=== PATIENT | male | born 2005 | race Caucasian/White ===

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

== ENCOUNTER 2025-01-23 16:04 | Emergency (ER) | payer OTHER, SELFPAY ==
[2025-01-23 16:13] VITALS: BP 104/69; PULSE 73; RESP 20; TEMP 37.2; O2SAT 99
--- NOTE | 2025-01-23 16:13 | ED.GENADULT ---
HPI - General Adult General Chief complaint: Upper Respiratory Infection Stated complaint: stuffy nose for two weeks/cough Time Seen by Provider: 01/23/25 16:13 Source: patient, RN notes reviewed and old records reviewed Mode of arrival: ambulatory Limitations: no limitations History of Present Illness HPI narrative: 19-year-old male presents to the [facility] with complaints of a runny nose, postnasal drainage and a cough for 2 weeks. Patient reports that Claritin has been making it better. Denies any facial pressure. Denies fevers. Denies any other symptoms. Has a history of seasonal allergies Onset (ago): week(s) (2) Related Data Allergies Allergy/AdvReac Type Severity Reaction Status Date / Time No Known Allergies Allergy Verified 01/23/25 16:05 Review of Systems Review of Systems: All systems reviewed & are unremarkable except as noted in HPI and below Constitutional: Constitutional: Reports no additional constitutional complaints ENT: Reports as per HPI Cardiovascular: Cardiovascular: Reports no additional cardiovascular complaints, Denies chest pain and Denies dyspnea Respiratory: Respiratory: Reports as per HPI, Denies chest congestion, Reports cough and Denies dyspnea Musculoskeletal: Musculoskeletal: Reports no additional musculoskeletal complaints Integumentary/Breasts: Skin/Breast: Reports system reviewed and no additional complaints, except as docu PMFSH Past Medical History Medical History Carlee esophagitis Social History Social History Smoking status: Never smoker Alcohol intake: current Drinks per week: 1 Substance use: never Comments At the time of my signature, I reviewed and agree with the nursing past medical, surgical, social, and family history. There is no relevant family history pertinent to the patient complaint. Exam Const: General: cooperative, healthy appearing, comfortable, no acute distress, well developed, alert and well nourished Nutritional Appearance: well nourished Orientation/consciousness: patient oriented x3 Limitations: no limitations HENMT: Head: normal to inspection Ears: hearing grossly normal bilaterally, external ears normal, TM's normal bilaterally, EAC's normal, mastoids normal and no periauricular adenopathy Face/Nose/Sinus: Normal external nose present, Normal nares present, Normal nasal mucous membranes and turbinates present, No nasal discharge present, normal facial exam, sinuses nontender and face symmetric Face and sinus: normal facial exam and face symmetric Mouth: Yes Normal oral and palatal mucosa present, Yes lip normal, Yes tongue normal and Yes moist mucous membranes Throat: posterior oropharynx normal, uvula midline, postnasal drainage and no uvular edema Eyes: General: appearance normal, both eyes and all related structures Alignment and Position: alignment normal Neck: Neck: normal visual inspection, full ROM, no lymphadenopathy and no meningeal signs Chest: Chest palpation & inspection: normal inspection of the chest Resp: Effort & Inspection: normal respiratory effort and able to speak in complete sentences Auscultation: clear to auscultation bilaterally, no crackles, no rales, no rhonchi and no wheezes Cardio: Rate: regular rate Skin: General skin exam: normal color and no rashes or lesions noted Neuro: General: patient oriented x3, gait normal, moves all extremities and no meningeal signs Cognition (Neuro): normal cognition Speech: normal speech Gait exam (Neuro): Normal gait present Extrem: General: normal to inspection, full ROM, capillary refill normal and normal gait Psych: Appearance: grossly normal and well kempt Mental Status: mental status grossly normal Speech and movement: Normal speech and movement present and Clear speech present Affect: normal affect Attitude: cooperative Course Course Level of Care: Express Care Visit Vital Signs Vital signs: Vital Signs Temperature 99.0 F 01/23/25 16:13 Pulse Rate 73 01/23/25 16:13 Respiratory Rate 20 01/23/25 16:13 Blood Pressure 104/69 01/23/25 16:13 Pulse Oximetry 99 01/23/25 16:13 Oxygen Delivery Room Air 01/23/25 16:13 Temperature 99.0 F 01/23/25 16:13 Pulse Rate 73 01/23/25 16:13 Respiratory Rate 20 01/23/25 16:13 Blood Pressure 104/69 01/23/25 16:13 Pulse Oximetry 99 01/23/25 16:13 Oxygen Delivery Room Air 01/23/25 16:13 Reviewed Medical Decision Making MDM Narrative Medical decision making narrative: Patient sitting comfortably in exam room. Nontoxic, vitals stable. Patient in no acute distress Patient presents with 2 week history of runny nose, postnasal drainage which improves with allergy medication. Patient reports that it does returned the next morning. No facial tenderness, no bogginess of nasal to rinses. No erythema. No signs of a bacterial infection Patient is appropriate for outpatient treatment with close follow-up Discharge instructions reviewed with patient, as well as provided in writing per nursing staff. The instructions also include specific and strict return/GO TO THE ER as well as f/u information. All questions have been answered, and the patient deny any further questions with discharge and discharge plan. Some parts of this dictation were generated by voice recognition software and may contain typographical and/or grammatical inaccuracies. Differential Diagnosis Differential Diagnosis: Sinusitis, sinus infection, URI, seasonal allergies Medical Records Medical records reviewed: Yes I reviewed the external patient's medical records. Vital Signs Vital Signs: Vital Signs Temperature 99.0 F 01/23/25 16:13 Pulse Rate 73 01/23/25 16:13 Respiratory Rate 20 01/23/25 16:13 Blood Pressure 104/69 01/23/25 16:13 Pulse Oximetry 99 01/23/25 16:13 Oxygen Delivery Room Air 01/23/25 16:13 Temperature 99.0 F 01/23/25 16:13 Pulse Rate 73 01/23/25 16:13 Respiratory Rate 20 01/23/25 16:13 Blood Pressure 104/69 01/23/25 16:13 Pulse Oximetry 99 01/23/25 16:13 Oxygen Delivery Room Air 01/23/25 16:13 Reviewed Lab Data Lab results reviewed: Yes I reviewed the patient's lab results. Labs: Reviewed Critical Care Time Critical Care Time Critical Care Time: No Discharge Plan Discharge Clinical Impression: Post-nasal drainage, Nasal sinus congestion Patient Disposition: Home Condition: Stable Instructions: Postnasal Drip (DC) Additional Instructions: It is very important to treat your symptoms. Drink plenty of water, Gatorade, Pedialyte, ice pops or Jell-O. -Alternate Tylenol and Motrin per package directions for fever or pain. You can alternate every 4 hours -Antihistamine medication such as Zyrtec/Claritin/Vanesa during the day can help improve symptoms. It is important to take these daily. -doing daily nasal irrigations can help relieve pressure your sinuses. Things like a Neti pot -Use Flonase twice a day for 5 days then daily to help reduce the inflammation and dry up your sinuses. -You can also use Mucinex. Be sure to drink plenty of water with this medication at least 8 ounces with every dose and it is important to drink 8 to 10 glasses of water per day. Water is a natural decongestant -Frequent hand washing or hand senior underwriter is one of the best ways to prevent spread of infection. -Using a vaporizer or humidifier at night will also help thin secretions and help with coughing up phlegm. -Follow up with primary care provider in 7-10 days if condition is not improving - For new or worsening symptoms go directly to the nearest ER Patient Language: Setswana Prescriptions: New fluticasone propionate [Flonase Allergy Relief] 50 mcg/actuation spray,suspension 2 spray intranasal DAILY Qty: 16 0RF Rx Instructions: administer into each nostril No Action cetirizine [Zyrtec] 10 mg tablet 10 mg PO DAILY 7 Days Qty: 7 0RF omeprazole 40 mg capsule,delayed release(DR/EC) 40 mg PO DAILY Qty: 30 2RF Follow-up/Referrals: Madhav Jackson MD [Primary Care Provider] - 1 Week ([facility] care follow up ) Time of Disposition: 16:20
== END 2025-01-23 16:23 | disposition home or self-care (01) ==
PROVIDERS: Emergency Provider Nurse Practitioner; PCP Pediatrics
DX: R09.82 Postnasal drip (principal); R09.81 Nasal congestion
CPT/HCPCS: 99213; G0463

== ENCOUNTER 2025-02-02 04:27 | Day surgery (SDC) | payer OTHER, SELFPAY ==
[2025-02-01 11:48] VITALS: BMI 18.8
--- OUTSIDE RECORDS SUMMARY | 2025-02-02 04:30 | XMS_ITS ---
Author Organization Formerly [facility] [place] ([address]) Address [address] [place] [address] Care Team Providers Care Marker Machine Name Role Phone Madhav Jackson Primary Care Provider UnavailMarc Lopez Unavailable [phone] ZZ-Migration, Provider Unavailable Unavailab REASON FOR VISIT [facility] To [facility] Conversion Encounter Medications Medication SIG (Take, Route, Frequency, Duration) Notes Start Date End Date Status NASAL WASHES N/A DIRECTED INTRANASALLY NEEDED; Duration: 30 *Please review for potential replacement for e-prescription and drug interaction check* Active Fluticasone Propionate 50 MCG/ACT 2 spray(s) in each nostril BID; Duration: 30 day(s) Active Fexofenadine HCl 180 MG 1 tab(s) orally Daily; Duration: 30 day(s) Active Loratadine 10 MG 1 tab(s) orally once a day Active Encounters Encounter Location Date Provider Diagnosis [address] [address] 12/13/2023 Provider ZZ-Migration Plan Of Treatment No Information Progress Notes * LORELEI SebastiánOB:2005 ( 19 yo M)Acc No.[id number]:12/13/2023 Patient: Ronal WUaton Provider: Laura Augustine :2005 A ge:18 Y S ex:Male Date:12/13/2023 Address[address] [id number] Pcp:Madhav Jackson Subjective: * Chief Complaints: * 1 . [facility] Conversion Encounter. * Medical History: * Medications: T aking Loratadine 10 MG Tablet 1 tab(s) orally once a day , Taking Fluticasone Propionate 50 MCG/ACT Suspension 2 spray(s) in each nostril BID , Taking NASAL WASHES N/A 1 QUART OF STERILIZED TAP WATER OR DISTILLED WATER, 1 TSP NACL, 1 PINCH OF BAKING SODA DIRECTED INTRANASALLY NEEDED , Notes to Pharmacist: *Please review for potential replacement for e-prescription and drug interaction check*, Taking Fexofenadine HCl 180 MG Tablet 1 tab(s) orally Daily Objective: * Vitals: Assessment: Plan: * Treatment: * Billing Information: * Visit Code: * Procedure Codes: * Electronic signature of Betty ANGELO-Migration on 02/02/2025 at 04:30 AM CDT Sign off status: Pending * Provider: Laura caballero Migration Date: 0 12/13/2023 Generated for Graciela do/Maryellen/Pineda on: 02/02/2025 04:30 AM CDT
--- OUTSIDE RECORDS SUMMARY | 2025-02-02 04:30 | XMS_ITS | Encounter Summary ---
Author Organization [facility] Address [address] [place] [address] Care Team Providers Care Hydrogen Power Plant Manager Name Role Phone Madhav Jackson MD Primary Care Provider [phone] Encounter Details Date Type Department Care Team (Late st Contact Info) Description 04/30/2022 Telephone [facility] [address] [place] [id number] Kiran Bernal, DO [address] [place] [address] [place] [address] Social History Tobacco Use Types Packs/Day Years Used Date Smoking Tobacco: Never Smokeless Tobacco: Never Alcohol Use Standard Drinks/Week Comments No 0 (1 standard drink = 0.6 oz pur e alcohol) Sex and Gender Information Value Date Recorded Sex Assigned at Not on file Legal Sex Male 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
--- OUTSIDE RECORDS SUMMARY | 2025-02-02 04:30 | XMS_ITS | Continuity of Care Document ---
Author Name [facility] Address [address] [place] [address] Organization [facility] Care Team Providers Care Store Consultant Name Role Phone [facility] HIE Unavailable Unavailable Problems Problem Status Onset Date Problem Type Date of Resolution Comme nts Source Acute pharyngitis (disorder) 10/05/2024 Diagnosis Sprain of shoulder (disorder) 06/09/2024 Diagnosis Cough (finding) 04/06/2024 Diagnosis Acute infective bronchitis (disorder) 04/06/2024 Diagnosis Results Order Name Results Value Reference Range Date Interpretation Comments Source Culture Throat Beta Strep No Group A beta-hemolytic Streptococcus isolated 10/05 17:17 :00 [facility] RESULTS Rapid Strep POC Negative *NA* (10/05/24 12:07 PM) 10/05 17:07 :00 [facility] XR Shoulder Right XR Shoulder Right XR General Diagnostic Accession # Exam Date/Time Procedure Ordering Provider [id number] 06/09/2024 14:14 MAINTENANCE HELPER XR Shoulder Right Nick Stewart Reason For Exam (XR Shoulder Right) shoulder pain Report EXAMINATION: XR Shoulder Right INDICATION: shoulder pain VIEWS: 4 COMPARISON: None FINDINGS: No fracture. Slight superior subluxation of the distal clavicle in relation to the acromion, which can be a normal variant. Normal glenohumeral joint space and alignment. IMPRESSION:. Slight superior subluxation of the distal clavicle in relation to the acromion, which can be a normal variant. Recommend clinical correlation for low-grade acromioclavicular joint sprain. I have personally reviewed the images and attest to the contents of this report. * * *Final Report* * * Electronically Signed by: Sindhu Kang MD Signed on: 06/09/24 14:18 06/09 14:08 :14 [facility] XR Chest XR Chest XR General Diagnostic Accession # Exam Date/Time Procedure Ordering Provider [id number] 04/06/2024 13:36 CDT XR Chest Braeden KENYON, Ulices Garrido Reason For Exam (XR Chest) 1 month history of nagging cough Report EXAMINATION: XR Chest INDICATION: 1 month history of nagging cough VIEWS: 2 COMPARISON: None FINDINGS: Normal cardiomediastinal silhouette. No focal parenchymal process. No pleural effusions. No pneumothorax. No acute osseous abnormalities. IMPRESSION: Normal chest. I have personally reviewed the images and attest to the contents of this report. * * *Final Report* * * Electronically Signed by: Maryam EDWARDS, Be Hdz Signed on: 04/06/24 13:41 04/06 13:28 :52 [facility] Consultation Notes Results Value Date Source Urgent Care Clinic Note Basic Informatio n Chief Complaint sore throat headache felt like had chills yesterday History of Present Illness CC: Sore throat HPI: Danilo Linares is a 19-year-old male who presents to the urgent care for evaluation of a sore throat. Patient states that his sore throat began on Friday. Yesterday his symptoms were worse with lots of nasal congestion. He had fluctuating between hot and cold flashes yesterday. Slept all day in his bed yesterday due to being so uncomfortable. Believes he had a fever but he did not check his temperature because he did not have a thermometer readily available. Has not had any nausea or vomiting. No diarrhea. Today he feels better from the perspective of the chills and discomfort but he still continues to have about the same amount of sore throat. He has been taking cold medicine, vitamins, and Mucinex to help alleviate his symptoms. 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 ROS: Const No fever + chills HEENT No ear pain + sore throat CV No chest pain No palpitations Resp No cough No trouble breathing GI No abd pain No nausea / vomiting No diarrhea Skin No rash M/S No back pain No leg pain Neuro + headache No difficulty walking No difficulty with speech All other systems negative except as noted above. PE: VS: Reviewed and acted upon as appropriate. See Electronic Medical Record Flowsheets for further details Gen NAD WN/WD HEENT No evidence of trauma, posterior oropharynx mildly erythematous with no tonsillar exudates or edema, no cervical lymphadenopathy, uvula is midline, normal phonation, tympanic membrane bilaterally with normal landmarks CV RRR, no murmurs Pulm Nl resp effort, clear to auscultation bilaterally, no wheezing appreciated M/S Nl appearance no deformity Neuro Nl mental status nl speech nl gait Skin No rash no abscess Psych Mood and Effect Nl Diagnosis: Viral pharyngitis/ Viral illness: Physical examination today notable for posterior oropharynx erythema with no tonsillar exudates or edema. Rapid strep - in clinic, will send off for culture. Discussed nature of viral process to peak in symptoms between days 3-5 with improvement near 7-10 days. Continue with salt water gargles and honey. Chloraseptic spray OTC. Continue to maintain hydration. Follow-up as needed. School note provided. Dispo: Discharge home. I have discussed my thought process, likely diagnosis, plan of care and strict followup and return precautions with the patient/family. I also explained that disease processes also involve in today's diagnosis is made based on current symptoms. Should the symptoms change, a new diagnosis maybe substituted. Patient/family were pleased with the care and verbalized agreement with the plan of care and followup. Questions/concerns addressed. Review of Systems Physical Exam Vitals and Measurements T: 36.3 C HR: 103 RR: 18 BP: 120/65 SpO2: 97% Procedure Medical Decision Making Reexamination/Reevaluation Assessment/Plan 1. Viral pharyngitis Orders: Culture Throat Beta Strep, Throat, 10/05/24 12:07:00 CDT, Routine, Routine, 10/05/24 12:17:00 CDT, Nurse Collect, Print Label Y/N, pucpths1, Hold Until Collected, First Available Patient Education Sore Throat Follow Up With When Contact Information Return to clinic as needed Within As Needed Additional Instructions: You likely have a viral process that is causing your symptoms. This is expected, but symptoms should start to improve within the next few days. Take Tylenol (acetaminophen) every 8 hours and/or ibuprofen every 8 hours as needed to help with throat pain and discomfort. You may alter Tylenol and ibuprofen (one or the other every 4 hours) as needed. You may use the Cepacol (benzocaine-menthol) throat lozenges as needed to help with sore throat You can purchase gels-etu-scljzmp Chloraseptic throat spray and use as needed to further help treat symptoms of sore throat. You may continue supportive treatment measures with drinking hot and cold liquids, eating tablespoons of honey several times a day, and salt water gargles. If you have worsening symptoms, symptoms that fail to improve with treatment, difficulty swallowing, difficulty breathing, swelling or stiffness of the neck, inability to open or close your jaw, muffled voice, or further concerns of developing, then return for further evaluation. Medication Reconciliation ED Forms Problem List/Past Medical History Procedure/Surgical History Medication Administration Allergies NKA Social History Smoking Status Never smoker Family History Lab Results Point of Care Labs LATEST RESULTS Rapid Strep POC 10/05/24 12:07 Negative Diagnostic Results ECG 10/05/2024 Vital Signs Vital Sign Value Date Comments Source SBP NIBP 120 mm[Hg] 10/05/2024 17:04:00 [facility] DBP NIBP 65 mm[Hg] 10/05/2024 17:04:00 [facility] SpO2 97 % 10/05/2024 17:04:00 [facility] Temperature (Celsius) 36.3 Evelyne 10/05/2024 17:04:00 [facility] Heart Rate 103 bpm 10/05/2024 17:04:00 [facility] Respiratory Rate 18 breaths/min 10/05/2024 17:04:00 [facility] SpO2 98 % 06/09/2024 19:54:00 [facility] Heart Rate 61 bpm 06/09/2024 19:54:00 [facility] Respiratory Rate 16 breaths/min 06/09/2024 19:54:00 [facility] SBP NIBP 110 mm[Hg] 06/09/2024 19:54:00 [facility] DBP NIBP 71 mm[Hg] 06/09/2024 19:54:00 [facility] Temperature (Celsius) 37.2 Evelyne 06/09/2024 19:54:00 [facility] SBP NIBP 109 mm[Hg] 04/06/2024 18:14:00 [facility] DBP NIBP 65 mm[Hg] 04/06/2024 18:14:00 [facility] Heart Rate 77 bpm 04/06/2024 18:14:00 [facility] Respiratory Rate 18 04/06/2024 18:14:00 [facility] SpO2 97 % 04/06/2024 18:14:00 [facility] Temperature (Celsius) 36.5 Evelyne 04/06/2024 18:14:00 [facility] SBP NIBP 115 mm[Hg] 03/22/2024 19:22:00 [facility] DBP NIBP 77 mm[Hg] 03/22/2024 19:22:00 [facility] Heart Rate 88 bpm 03/22/2024 19:22:00 [facility] Respiratory Rate 20 breaths/min 03/22/2024 19:22:00 [facility] SpO2 96 % 03/22/2024 19:22:00 [facility] Temperature (Celsius) 36.2 Evelyne 03/22/2024 19:22:00 [facility] Encounters Location Location Details Encounter Type Encounter Number Reason For Visit Attending Provider ADM Date DC Date Status Source [facility] [id number] Deirdre Weaver 03/22 19:17 :23 03/22 19:36 :00 [facility] [id number] Ulices Deras 04/06 18:08 :48 04/06 18:58 :00 [facility] [id number] Nick Stuart 06/09 19:46 :01 06/09 20:43 :00 [facility] [id number] Slime Morrell 10/05 16:59 :31 10/05 17:31 :00 [facility] Social History Social History Date Source No data available for this section 10/05/2024 [facility] No data available for this section 06/09/2024 [facility] No data available for this section 04/06/2024 [facility] No data available for this section 03/22/2024 [facility]
--- OUTSIDE RECORDS SUMMARY | 2025-02-02 04:30 | XMS_ITS | Clinical Summary ---
Author Organization [facility] Address [address] [place] [address] Care Team Providers Care De Alcholizer Name Role Phone Madhav Jackson MD Primary Care Provider [phone] Source Comments [facility],non-owned Affiliates and Associated Physician Practices is amultiple site organization consisting of ambulatory clinics and hospital sitesin [place], [place], [place] and [place]. This disclosure is being madepursuant to the Care Everywhere program and may not contain all information available regarding this patient. Last updated 18.[facility] Allergies No known active allergies Medications * Be aware that medications may not be up to date on this document. Alwaysverify current medications with the patient. Multiple Vitamins-Minera ls (MULTIVITAMIN & MINERAL) LIQD Take 6 mL by mouth once daily Active loratadine (CLARITIN) 10 MG tablet Take 1 (one) tablet by mouth once daily Active famotidine (Pepcid) 40 MG tablet Take 1 (one) tablet by mouth at bedtime 90 tablet 4 11/19/2022 Active omeprazole (PriLOSEC) 40 MG capsule Take 1 (one) capsule by mouth once daily 30 capsule 5 05/26/2023 Active Active Problems Problem Noted Date Diagnosed Date Functional dyspepsia 05/26/2023 Fungal esophagitis 07/22/2022 Other irritable bowel syndrome 07/22/2022 [employer] shoulder 08/18/2020 Weight loss 11/20/2017 Resolved Problems Problem Noted Date Diagnosed Date Resolved Date Lower abdominal pain 11/19/2017 022 Epigastric abdominal pain 11/19/2017 Diarrhea 11/19/2017 12/17/2017 Immunizations Immunization Administration Dates Next Due DTaP VACCINE IM (6wk-6yrs) 03/30/2010,,2005,07/05,2005 FLU VACCINE TRI IIV3 SPLIT I M (FLUVIRIN) 03/24/2009,04/04/2008 HEP A PEDS 2 DOSE 09/05/2006,03/05/2006 HEP B VACCINE, PED/ADOL 2005,2005, HIB VACCINE 06/06/2006,2005,2005 HIB-PRP-OMP 3 DOSE 11/12/2021 Human Papilloma Virus Nineva lent Vaccine 12/28/2018,12/24/2017 INFLUENZA VACCINE, QUADR. (A FLURIA, FLUZONE QUADRIVALENT; 6MO+) (IIV4) 05/01/2018,04/10/2016,05/17/2015 INFLUENZA VACCINE, QUADR. (F LUZONE; FLULAVAL; FLUARIX; AFLURIA QUADRIVALENT; 6MO+), 0.5 ML (IIV4) 05/14/2022,04/23/2019,04/18/2017 INFLUENZA VACCINE, TRIV. (FL UZONE; FLULAVAL; FLUARIX; AFLURIA TRIVALENT; 6MO+), 0.5 ML (IIV3) 05/12/2013,04/02/2006,2005 MENINGOCOCCAL ACWY (MCV4P) VAC IM 08/07/2016 MMR VACCINE 03/30/2010,03/05/2006 PNEUMOCOCCAL PCV7 CONJ, PEDS 03/05/2006, 2005,2005,05/06 POLIO IPV 03/30/2010, 6,2005,05/06 TDAP, HISTORIC VACCINE 08/07/2016 VARICELLA 03/30/2010,03/05/2006 Family History Medical History Relation Name Comments Thyroid Disease Maternal Grandmother Celiac Disease Neg Hx Crohn's Disease Neg Hx Ulcerative Colitis Neg Hx Relation Name Status Comments Maternal Grandmother Social History Tobacco Use Types Packs/Day Years Used Date Smoking Tobacco: Never Passive Smoke Exposure: Never Smokeless Tobacco: Never Tobacco Cessation:Counseling Given: Not Answered Alcohol Use Standard Drinks/Week Comments No 0 (1 standard drink = 0.6 oz pur e alcohol) Sex and Gender Information Value Date Recorded Sex Assigned at Not on file Legal Sex 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 Gender Identity Not on file Sexual Orientation Not on file Last Filed Vital Signs Vital Sign Reading Time Taken Comments Blood Pressure 112/64 05/26/2023 3:43 PM ALUMINUM SIDING INSTALLER Pulse 85 06/21/2022 2:15 PM ALUMINUM SIDING INSTALLER Temperature 36.5 C (97.7 F) 06/21/2022 1:40 PM ALUMINUM SIDING INSTALLER Respiratory Rate 12 06/21/2022 2:15 PM ALUMINUM SIDING INSTALLER Oxygen Saturation 99% 06/21/2022 2:15 PM ALUMINUM SIDING INSTALLER Inhaled Oxygen Concentration - - Weight 74.8 kg (164 lb 14.5 oz) 05/26/2023 3:43 PM ALUMINUM SIDING INSTALLER Height 188.5 cm (6' 2.21) 05/26/2023 3:43 PM CS T Body Mass Index 21.05 05/26/2023 3:43 PM ALUMINUM SIDING INSTALLER Body Mass Index Percentile 36.21% 05/26/2023 3:4 3 PM ALUMINUM SIDING INSTALLER Growth Chart: CDC (Boys, 2-2 0 Years) Plan of Treatment Health Maintenance Due Date Last Done Comments HIV SCREENING 2020 MENINGOCOCCAL (Group B) VACCINE SHARED DECISION-MAKING (1 of 2 - Standard) 2021 HEPATITIS C SCREENING 02/27/2023 COVID-19 VACCINE ( season) 2024 DEPRESSION SCREENING 06/30/2024 INFLUENZA VACCINE (#1) 2025 , 04/23/2019, 05/01/2018, Additional history exists DTAP/TDAP/TD VACCINES (7 - Td or Tdap) 08/07/2026 08/07/2016, 03/30/2010, 06/06/2006, Additional history exists ZOSTER VACCINE (1 of 2) 2055 HEPATITIS B VACCINE Completed 2005, 2005, 2005 PNEUMOCOCCAL VACCINE Completed 03/05/2006, 2005, 2005, Additional history exists MENINGOCOCCAL GROUPS A/C/Y/W VACCINE Aged Out 08/07/2016 No longer eligible based on patient's age to complete this topic HPV VACCINE Completed 12/28/2018, 12/24/2017 HIB VACCINE Completed 11/12/2021, 12/0 01/2006, 2005, Additional history exists Medical Devices Implanted Type Area Clearance Center Manager Device Identifier Shelf Expiration Date Model / Serial / Lot [place] Sut Gryphon Proknot Bcrl Rapide Implanted:Qty: 1 on 04/25/2022 by Ricardo Garvin MD at [facility] [employer] 10/27/2024 [id number] / / [id number] [place] S[employer] Gryphon Proknot Bcrl Rapide Implanted:Qty: 1 on 04/25/2022 by Ricardo Garvin MD at [facility] [employer] 10/27/2024 [id number] / / [id number] [place] S[employer] Gryphon Proknot Bcrl Rapide Implanted:Qty: 1 on 04/25/2022 by Ricardo Garvin MD at [facility] [employer] 10/27/2024 [id number] / / [id number] Insurance [facility]LY [facility] [employer] [facility] Address: [id number] [place] [phone] [employer] Care Teams De Alcholizer Relationship Specialty Start Date End Date Madhav Jackson MD [address] [place], [place] [address] PCP - General 01/06/11
--- OUTSIDE RECORDS SUMMARY | 2025-02-02 04:30 | XMS_ITS | Patient Health Record ---
Author Organization [facility] [place] ([address]) Address [address] [place] [address] Care Team Providers Care Inspector Metal Can Name Role Phone Madhav Jackson Primary Care Provider Marc Washington Unavailable [phone] Allergies No Known Allergies Reason For Referral No Information Medications Medication SIG (Take, Route, Frequency, Duration) Notes Start Date End Date Status LORATADINE 10 mg 1 tab(s) orally once a day Active FLUTICASONE NASAL 50 mcg/inh 2 spray(s) in each nostril BID; Duration: 30 day(s) Active FEXOFENADINE 180 mg 1 tab(s) orally Daily; Duration: 30 day(s) Active NASAL WASHES N/A DIRECTED INTRANASALLY NEEDED; Duration: 30 *Please review for potential replacement for e-prescription and drug interaction check* Active Fluticasone Propionate 50 MCG/ACT 2 spray(s) in each nostril BID; Duration: 30 day(s) Active Fexofenadine HCl 180 MG 1 tab(s) orally Daily; Duration: 30 day(s) Active Loratadine 10 MG 1 tab(s) orally once a day Active Immunizations Vaccine Route Administration Date Status Comme nts NOC PedvaxHIB IM Intramuscular 11/12/2021 Administered Fluzone, quadrivalent, preservative free Unknown 04/23/2019 Administered Social History Tobacco Use: Social History Observation Description Date Details (start date - stop date) Never Smoker NA - NA Smoking Smart Form: Question Answer Notes Are you a: never smoker Problems Problem Type SNOMED Code ICD Code Onset Dates Problem Status W/U Status Risk Notes Problem Chronic allergic conjunctivitis (95388696) Other chronic allergic conjunctivitis (H10.45) Active confirmed Problem Allergic rhiniti s due to pollen (J30.1) Active confirmed Problem Allergic rhinitis (20822470) Other allergic rhinitis (J30.89) Active confirmed Problem Chronic sinusitis (18561951) Other chronic sinusitis (J32.8) Active confirmed Plan Of Treatment Pending Test Test Name Order Date STREPTOCOCCUS PNEUMONIAE IGG AB (23 SERO TYPES) 09/11/2021 HAEMOPHILUS INFLUENZAE B ANTIBODY, IGG 0 09/11/2021 CARDIO IQ(R) VITAMIN D, 25 HYDROXY 08/06 CARDIO IQ(R) VITAMIN D, 25 HYDROXY 09/11 Insurance Providers Payer Name Payer Address Payer Phone Subscriber Number Group Number Insured Name Patient Relationship to Insured Coverage Start Date Coverage End Date Russel MARIE [address] [place] [address] [phone] [id number] Danilo Moseley Self - patient is the insured Medical (General) History Medical History History ICD Code Allergic rhinitis due to pollen J30.1 Other allergic rhinitis J30.89 Other chronic allergic conjunctivitis H1 0.45 Other chronic sinusitis J32.8 Surgical History Surgery Date(Month/Year) Adeniodectomy 2009
--- OUTSIDE RECORDS SUMMARY | 2025-02-02 04:30 | XMS_ITS | Continuity of Care Document ---
Author Organization [employer] [place] Address [address] [facility] [address] [place] [phone] Phone Care Team Providers Care Machinist General Name Role Phone Kiran Ya Unavailable Unavailable Procedures Procedure Date PT Evaluation Low Complexity Therapeutic Activities Therapeutic Exercise Neuromuscular Re-Ed VTA-Indvidual Onsite Eval Neuromuscular Re-Ed Therapeutic Activities Therapeutic Exercise Therapeutic Activities Therapeutic Exercise Neuromuscular Re-Ed Manual Therapy Therapeutic Activities Therapeutic Exercise Neuromuscular Re-Ed Therapeutic Activities Therapeutic Exercise Neuromuscular Re-Ed Therapeutic Activities Neuromuscular Re-Ed Therapeutic Exercise Manual Therapy Therapeutic Activities Neuromuscular Re-Ed Manual Therapy Therapeutic Exercise Hot or Cold Pack Therapeutic Exercise Therapeutic Activities Neuromuscular Re-Ed Hot or Cold Pack Manual Therapy Therapeutic Activities Neuromuscular Re-Ed Therapeutic Exercise Manual Therapy Hot or Cold Pack PT Evaluation Moderate Complexity Manual Therapy Therapeutic Exercise Neuromuscular Re-Ed Therapeutic Activities Therapeutic Exercise Neuromuscular Re-Ed Therapeutic Activities Therapeutic Exercise Neuromuscular Re-Ed Therapeutic Activities Neuromuscular Re-Ed Therapeutic Exercise PT Evaluation Low Complexity Neuromuscular Re-Ed Therapeutic Exercise Advance Directives Directive Yes / No Effective Date File Name No Information Encounters Encounter Description Practice Location Reason(s) For Visit Diagnoses Date Provider Providers Copied on Encounter [facility], [id number], tel:[phone] [place] No Information [address] [address] [facility], [address], [facility] [place], . tel: [phone] [facility] [address], [id number], tel:[phone] [place] No Information 2 Muehl Kiran. [address] [facility] [address], [facility] [place], . tel: [phone] Referring Provider: Access Direct. [facility] [address], [place], [id number], tel:[phone] [place] No Information [address] [address] [facility], [facility] [address], [facility] [place], . tel: [phone] Referring Provider: Access Direct. [facility] [facility] [address], [place], [id number], tel:[phone] [place] No Information [address] [facility], [address], [place], [place], [facility] [place], [place]. tel: [phone] Referring Provider: Access Direct. [facility], [address] [facility], [place], [place], [id number], tel:[phone] [place] No Information [address] [facility], [address], [place], [place], [facility] [place], [place]. tel: [phone] Referring Provider: Access Direct. [facility] [address] [facility], [place], [place], [id number], [place] tel:[phone] [place] No Information 2 Prem Juanito. . Referring Provider: Access Direct. [facility] [facility] [address], [place], [place], [id number], [place] tel:[phone] [place] No Information [address] [facility], [address], [place], [place], [facility] [place], [place]. tel: [phone] Referring Provider: Access Direct. [facility] [facility] [address], [place], [place], [id number], [place] tel:[phone] [place] No Information 2 Prem Juanito. . Referring Provider: Access Direct. [facility], [place], [place], [id number], [place] tel:[phone] [place] No Information 2 Prem Juanito. . Referring Provider: Access Direct. [facility] [facility] [address], [place], [place], [id number], [place] tel:[phone] [place] No Information 2 Prem Juanito. . Referring Provider: Access Direct. [facility] [facility] [address], [place], [place], [id number], [place] tel:[phone] [place] No Information 2 Muehl Kiran. [address] [place] [address], [facility] [address], [facility] [place], . tel: [phone] Referring Provider: Access Direct. [facility], [address] [place] [address], [id number], tel:[phone] [place] No Information 2 Muehl Kiran. [address] [place] [address] [address], [facility] [place], . tel: [phone] Referring Provider: [employer]. [address], [id number], tel:[phone] [place] No Information 2 Prem Juanito. . Referring Provider: Access [employer]. [address], [id number], tel:[phone] [place] No Information 2 Muehl Kiran. [address] [place] [address], [facility] [place], . tel: [phone] Referring Provider: [employer]. [address], [id number], [phone] [place] No Information 2 Muehl Kiran. [address] [place] [address], [facility] [place], . tel: [phone] Referring Provider: [employer]. Family History Family Member Type Diagnosis Age At Onset No Information Payers Payer name Insurance type Covered libertarian ID Uday hughes(s) Russel CI [id number] Social History Type Description Quantity Date Captured Comments Sex Male Smoking Status No Information Chief Complaint And Reason For Visit No Information Reason For Referral Reason For Referral No Information History Of Present Illness Encounter Date Complaint History Of Prese nt Illness No Information Functional Status Date Functional Assessmen t No Information Instructions Date Instruction Additional Infor mation No Information Assessments Type Assessment Date No Information Patient Care Teams Name Effective Dates (start - stop) Status Members No Information
[2025-02-02 08:58] VITALS: BP 131/57; PULSE 93; RESP 18; TEMP 36.8; O2SAT 99; BMI 18.5
[2025-02-02] MEDS: LACTATED RINGERS 1,000 ML 150 ML IV CONT (09:01)
--- NOTE | 2025-02-02 09:29 | P.PNAN_ITS ---
Anes - Initial Pre Proc Eval Procedure: Operation Date: 02/02/25 10:00 Proposed Procedures p EGD & Diagnostic Colonoscopy - Eusebio Griffin MD Date/Time: 02/02/25 09:29 Surgeon: Eusebio Griffin MD Pre Op Diagnosis: Other specified symptoms and signs involving the d Patient Data Age: 19 Gender: M Height: 1.91 m Weight: 67.3 kg Last Vital Signs Temp 36.8 C 02/02/25 08:58 Pulse 93 02/02/25 08:58 Resp 18 02/02/25 08:58 BP 131/57 L 02/02/25 08:58 Pulse Ox 99 02/02/25 08:58 O2 Del Method Room Air 02/02/25 08:58 Allergies Allergy/AdvReac Type Severity Reaction Status Date / Time No Known Allergies Allergy Verified 02/02/25 08:56 Home Medications ?Medication ?Instructions ?Recorded ?Confirmed ?Type omeprazole 40 mg capsule,delayed 40 mg PO DAILY #30 ca ps 11/19/24 02/02/25 Rx release cetirizine 10 mg tablet (Zyrtec) 10 mg PO DAILY 7 days #7 tabs 12/04/24 02/02/25 Rx fluticasone propionate 50 2 spray intranasal DAILY #16 grams 01/23/25 02/02/25 Rx mcg/actuation nasal spray,suspension (Flonase Allergy Relief) Patient hx anesthesia problems: none Family hx anesthesia problems: none Results Review: All pre-operative results and documents have been reviewed as part of the pre- operative evaluation. [facility] Past Medical History Medical History (Updated 02/02/25 @ 09:30 by Luciano Ward DO) Seasonal allergies GERD (gastroesophageal reflux disease) Carlee esophagitis Social History Social History Smoking status: Never smoker Alcohol intake: current Drinks per week: 1 Substance use: never Substance use type: does not use Living arrangements: with family Spiritual care concerns: No Anes - Eval Final PreProcedure Day of Procedure 02/02/25 09:29 Patient weight: normal Heart: regular rate and rhythm Lungs: clear to auscultation and normal air movement Airway: Mallampati scale class II Neurological: alert and oriented Last oral intake: >/= 8 hours ASA classification: II Emergent: no Anesthetic plan: proceed Anesthesia type and monitoring: general GIVS and standard monitoring Results Review: All pre-operative results and documents have been reviewed as part of the pre- operative evaluation. Informed Consent: The patient's anesthetic plan and its attendant risks and benefits were discussed with the patient/family/POA. Questions were solicited and answers provided to the satisfaction of the patient/family/POA.
--- NOTE | 2025-02-02 09:56 | WPDHPUPDATE1 ---
History and Physical Update Update Date/Time: 02/02/25 09:56 History and Physical has been reviewed, including an updated exam of the patient. There are NO changes in the patient's condition. Risks, benefits, and alternatives have been discussed and questions answered. Patient agrees to proceed with procedure.
--- NOTE | 2025-02-02 10:09 | S_PTH ---
PATIENT: Danilo Moseley LOC: [facility]#:[id number] AGE/SX: 19/M ROOM: RE02/02/[address]: Eusebio Griffin MD : 2005 BED: DIS: 02/02/2025 SPEC #: [id number] RECD: 02/02/25 11:36 STATUS: LOLLY REQ #: [id number] OLY: 02/02/25 10:[address]: Eusebio Griffin DEPT: [facility] Surgical RECD BY: Savanna Mckeon ENTERED: 02/02/25 11:37 SP TYPE: Surgical OTHR DR: Madhav Jackson MD Tissues: A - Gastric Biopsy B - Small Bowel Bx C - Colon Biopsy Procedures: Hematoxylin and Eosin Stain Gross and Microscopic Level 4
[2025-02-02 10:20] VITALS: BP 104/48; PULSE 90; RESP 20; O2SAT 99
[2025-02-02 10:30] VITALS: BP 101/61; PULSE 85; RESP 20; O2SAT 100
[2025-02-02 10:40] VITALS: BP 114/78; PULSE 82; RESP 16; O2SAT 100
== END 2025-02-02 10:47 | disposition home or self-care (01) ==
PROVIDERS: PCP Pediatrics; Referring Provider Nurse Practitioner Family; Visit Provider Internal Medicine Gastroenterology
PROC: 0DJ08ZZ Inspection of Upper Intestinal Tract, Via Natural or Artificial Opening Endoscopic (ICD-10-PCS; CPT 45378; principal; 2025-02-02 10:00)
DX: R19.8 Other specified symptoms and signs involving the digestive system and abdomen (principal); K21.9 Gastro-esophageal reflux disease without esophagitis; Z87.19 Personal history of other diseases of the digestive system
CPT/HCPCS: 43239; 45380; 88305; J2003; J2704; J7120